=== PATIENT | male | born 1955 | race Caucasian/White ===

== ENCOUNTER 2020-10-24 10:01 | Emergency (ER) | payer OTHER ==
[~2020-10-24] VITALS: Ht 167.6 cm; Wt 78.0 kg
[2020-10-24] MEDS ORDERED: ONDANSETRON HCL 4MG/2ML INJ IV STA (11:48)
[2020-10-24] MEDS ORDERED: SODIUM CHLORIDE 0.9% 1,000 ML IV ONE (12:00)
[2020-10-24 12:23] LABS: BASOPHILS % 0.4 % (0.0-2.0); EOSINOPHILS % 0.2 % (0.0-5.0); HEMOGLOBIN. 12.9 g/dL (14.0-18.0); LYMPHOCYTES % 15.8 % (20.0-50.0); MEAN CORPUSCULAR HEMOGLOBIN 30.3 pg (28.0-32.0); MEAN PLATELET VOLUME 8.5 fl (7.4-10.4); MONOCYTES % 8.1 % (2.0-8.0); NEUTROPHILS % 75.5 % (40.0-76.0); PLATELET 141 x1000/uL (130-400); RED BLOOD CELL COUNT 4.25 mill/uL (4.7-6.1); RED CELL DISTRIBUTION WIDTH 12.5 % (11.6-14.6)
[2020-10-24 12:31] LABS: CHLORIDE 97 mEq/L (98-107)
[2020-10-24 13:47] LABS: CLARITY URINE CLEAR (CLEAR); COLOR URINE YELLOW (YELLOW); KETONES URINE NEGATIVE (NEGATIVE); LEUKOCYTE ESTERASE URINE NEGATIVE (NEGATIVE); NITRITE URINE NEGATIVE (NEGATIVE); OCCULT BLOOD URINE TRACE (NEGATIVE); PROTEIN URINE 2+ (NEGATIVE); SPECIFIC GRAVITY URINE 1.018 (1.005-1.030)
[2020-10-24 15:51] VITALS: BP 132/64
== END 2020-10-24 16:09 | disposition home or self-care (01) ==
LOC: ER 10:01
DX: U07.1 COVID-19 (principal); R11.2 Nausea with vomiting, unspecified; E11.65 Type 2 diabetes mellitus with hyperglycemia; I10 Essential (primary) hypertension; Z98.890 Other specified postprocedural states; Z91.14 Patient's other noncompliance with medication regimen
CPT/HCPCS: 36415; 71045; 80053; 81003; 82962; 85025; 87804; 93005; 96361; 96374; 99285; C9803; J2405; J7030; U0003

== ENCOUNTER 2022-10-03 08:23 | Emergency (ER) | payer OTHER ==
[~2022-10-03] VITALS: Ht 162.6 cm; Wt 74.0 kg
[~2022-10-03 08:23] MED LIST: AMLO10TA80 PO; ATOR20TA65 MT; CA C1TAB71 PO; FAMO20TA8 MT; INSLIS SUBCUT; KEPP500 MT; LOSA25TA3 PO; METF-416 MT; METO25TA6 PO
[2022-10-03 08:27] VITALS: BP 163/87
== END 2022-10-03 11:18 | disposition left against medical advice (07) ==
LOC: ER 08:23
DX: Z53.21 Procedure and treatment not carried out due to patient leaving prior to being seen by health care provider (principal); E11.9 Type 2 diabetes mellitus without complications; I10 Essential (primary) hypertension; Z86.73 Personal history of transient ischemic attack (TIA), and cerebral infarction without residual deficits

== ENCOUNTER 2023-02-01 15:59 | Emergency (ER) | payer OTHER ==
[~2023-02-01] VITALS: Ht 167.6 cm; Wt 73.0 kg
[2023-02-01] MEDS ORDERED: KETOROLAC 60MG/2ML VIAL IM ONE (17:45)
[2023-02-01] MEDS ORDERED: ACETAMINOPHEN 325MG TABLET PO ONE (17:45)
[2023-02-01 18:28] VITALS: BP 186/108
[2023-02-01] MEDS: LIDOCAINE 5% PATCH TOP SCH ×2 (18:28→19:44)
[2023-02-01] MEDS ORDERED: TOPUD PO (19:20)
[2023-02-01] MEDS ORDERED: METH-653 MT (19:20)
[2023-02-01] MEDS ORDERED: LIDO1ADH23 TP (19:20)
== END 2023-02-01 19:43 | disposition home or self-care (01) ==
LOC: ER 15:59
DX: M79.604 Pain in right leg (principal); E11.9 Type 2 diabetes mellitus without complications; I10 Essential (primary) hypertension; Z86.73 Personal history of transient ischemic attack (TIA), and cerebral infarction without residual deficits; Z79.899 Other long term (current) drug therapy
CPT/HCPCS: 72170; 73552; 93971; 96372; 99285; J1885; Z7610